=== PATIENT | female | born 1945 | race Caucasian/White ===

== ENCOUNTER 2021-02-14 15:45 | Emergency (ER) | payer MEDICARE, OTHER, MEDICAID | END 2021-02-14 17:30 | disposition home or self-care (01) | LOC: MADERS 15:45 | DX: S80.01XA Contusion of right knee, initial encounter (principal); E11.9 Type 2 diabetes mellitus without complications; E78.5 Hyperlipidemia, unspecified; I10 Essential (primary) hypertension; W19.XXXA Unspecified fall, initial encounter ==